=== PATIENT | female | born 1990 | race Caucasian/White ===

== ENCOUNTER 2017-10-09 06:13 | Emergency (ER) | payer OTHER ==
[~2017-10-09] VITALS: Ht 175.3 cm; Wt 133.8 kg
[~2017-10-09 06:13] MED LIST: ALLE4TAB10 PO; AMOX500C PO; NORE-44 PO; SERT-129 PO; VENTAER INH
[2017-10-09 06:18] VITALS: BP 153/81; PULSE 82; RESP 20; TEMP 97.4; O2SAT 97
[2017-10-09] MEDS ORDERED: ALLE60TA PO (06:35)
[2017-10-09] MEDS ORDERED: FLUT1AER6 INH (06:35)
[2017-10-09] MEDS ORDERED: CLON0.5T PO (06:36)
[2017-10-09] MEDS ORDERED: BENZ1CAP51 PO (06:36)
[2017-10-09] MEDS ORDERED: ALBUAER3 INH (06:36)
[2017-10-09] MEDS ORDERED: PRED20 PO (06:36)
[2017-10-09] MEDS ORDERED: SODIUM CHLOR 0.9% 1000 ML INJ 1,000 ML IV SCH (06:37)
[2017-10-09] MEDS ORDERED: ONDANSETRON HCL 4 MG/2 ML VIAL IVP ONE (06:45)
[2017-10-09] MEDS ORDERED: SODIUM CHLORIDE 0.9% FLUSH 10 ML FLUSH IV FLUSH PRN (06:45)
--- NOTE | 2017-10-09 06:48 | PD ---
HPI Chief Complaint: GI Complaint Time Seen by Provider: 06:34 Travel History International Travel<30 days: No Contact w/Intl Traveler<30days: No Traveled to known affect area: No History of Present Illness HPI The patient is a 26-year-old female that complains of nausea and vomiting without any diarrhea for 3 hours. She denies any blood in the vomitus or stool. She denies any fever. She has minimal abdominal pain and states it is only from the vomiting in the midline epigastrium region. She states there is no possibility of . She does take control pills correctly. PFSH Past Medical History Asthma: Yes Anxiety: Yes Depression: Yes Tetanus Vaccination: < 5 Years Influenza Vaccination: Yes ?: Not LMP: does not have Past Surgical History Surgical History: No Previous Surgery Social History Alcohol Use: No Tobacco Use: No Substance Use: No Allergies-Medications (Allergen,Severity, Reaction): Coded Allergies: cinnamon (Verified Allergy, Unknown, 10/09/17) tongue swells Reported Meds & Prescriptions Reported Meds & Active Scripts Active Reported Prednisone 20 Mg Tab 20 Mg PO DIRECTED 40 MG twice a day x 3 days, then 20 MG daily x 3 days, then 10 MG daily x 3 days Proair Hfa 8.5 GM Inh (Albuterol Sulfate) 90 Mcg/Act Aer 2 Puff INH Q4-6H PRN 108 mcg/actuation Clonazepam 0.5 Mg Tab 0.5 Mg PO DAILY Benzonatate 200 Mg Cap 200 Mg PO TID PRN Sarika Allergy (Fexofenadine HCl) 60 Mg Tab 60 Mg PO BID Airduo Respiclick Inh (Fluticasone-Salmeterol Inh) 55-14 Mcg Inh 1 Puff INH BID Sertraline (Sertraline HCl) 100 Mg Tab 150 Mg PO DAILY Review of Systems Except as stated in HPI: all other systems reviewed are Neg Physical Exam Narrative GENERAL: The patient is obese, alert, oriented 3 in moderate apparent distress other nausea. Her vital signs show blood pressure 153/81 but are otherwise normal. The patient appears mildly dehydrated. SKIN: Focused skin assessment warm/dry. HEAD: Atraumatic. Normocephalic. EYES: Pupils equal and round. No scleral icterus. No injection or drainage. ENT: No nasal bleeding or discharge. Mucous membranes pink and moist. NECK: Trachea midline. No JVD. CARDIOVASCULAR: Regular rate and rhythm. No murmur appreciated. RESPIRATORY: No accessory muscle use. Clear to auscultation. Breath sounds equal bilaterally. GASTROINTESTINAL: Abdomen soft, non-tender except for some minimal discomfort in the midline epigastrium, nondistended. Hepatic and splenic margins not palpable. No guarding or rebound is present. MUSCULOSKELETAL: No obvious deformities. No clubbing. No cyanosis. No edema. NEUROLOGICAL: Awake and alert. No obvious cranial nerve deficits. Motor grossly within normal limits. Normal speech. PSYCHIATRIC: Appropriate mood and affect; insight and judgment normal. Data Data Last Documented VS Vital Signs Date Time Temp Pulse Resp B/P (MAP) Pulse Ox O2 Delivery O2 Flow Rate FiO2 10/09/17 06:18 97.4 82 20 153/81 (105) 97 Orders Orders Complete Blood Count With Diff (10/09/17 06:37) Comprehensive Metabolic Panel (10/09/17 06:37) Lipase (10/09/17 06:37) Urinalysis - C+S If Indicated (10/09/17 06:37) Iv Access Insert/Monitor (10/09/17 06:37) Ecg Monitoring (10/09/17 06:37) Oximetry (10/09/17 06:37) Ondansetron Inj (Zofran Inj) (10/09/17 06:45) Sodium Chlor 0.9% 1000 Ml Inj (Ns 1000 M (10/09/17 06:37) Sodium Chloride 0.9% Flush (Ns Flush) (10/09/17 06:45) Ed Urine Pregnancytest Poc (10/09/17 06:37) [facility] Medical Decision Making Medical Screen Exam Complete: Yes Emergency Medical Condition: Yes Medical Record Reviewed: Yes Differential Diagnosis Gastritis, gastroenteritis, pancreatitis, ulcer pain, colitis, dehydration, electrolyte disorder Narrative Course It is now 0647 and the patient is transferred to Dr. Donovan. Veto Burrows MD Oct 09, 2017 06:48
[2017-10-09 07:06] VITALS: BP 127/73; PULSE 81; RESP 16; O2SAT 99
[2017-10-09 07:19] LABS: AUTOMATED NEUTROPHIL # 14.7 TH/MM3 (1.8-7.7); BASOPHIL # 0.2 TH/MM3 (0-0.2); EOSINOPHIL % 0.1 % (0.0-4.0); HEMATOCRIT 44.7 % (35.0-46.0); HEMOGLOBIN 15.5 GM/DL (11.6-15.3); LYMPH % 20.9 % (9.0-44.0); LYMPHOCYTE # 4.2 TH/MM3 (1.0-4.8); MEAN CELL VOLUME 87.7 FL (80.0-100.0); MEAN CORPUSCULAR HEMOGLOBIN 30.5 PG (27.0-34.0); MEAN CORPUSCULAR HGB CONC 34.7 % (32.0-36.0); MEAN PLATELET VOLUME 7.6 FL (7.0-11.0); MONO % 5.2 % (0.0-8.0); NEUT % 72.8 % (16.0-70.0); PLATELET COUNT 451 TH/MM3 (150-450); RED CELL DISTRIBUTION WIDTH 11.8 % (11.6-17.2); WHITE BLOOD COUNT 20.1 TH/MM3 (4.0-11.0)
[2017-10-09 07:24] LABS: CHLORIDE 103 MEQ/L (98-107); SODIUM (NA) 139 MEQ/L (136-145)
[2017-10-09 07:27] LABS: ALBUMIN 3.8 GM/DL (3.4-5.0); BICARBONATE 26.4 MEQ/L (21.0-32.0); CALCIUM 9.4 MG/DL (8.5-10.1)
[2017-10-09 07:28] LABS: BLOOD UREA NITROGEN 14 MG/DL (7-18); GLUCOSE,RANDOM 143 MG/DL (74-106)
[2017-10-09 07:30] LABS: ALT (GPT) 45 U/L (10-53); AST (GOT) 19 U/L (15-37)
[2017-10-09 07:31] LABS: GLOMERULAR FILTRATION RATE 87 ML/MIN (>89)
[2017-10-09 07:32] LABS: TOTAL BILIRUBIN ADULT 0.2 MG/DL (0.2-1.0); TOTAL PROTEIN 8.1 GM/DL (6.4-8.2)
[2017-10-09 07:33] LABS: ALKALINE PHOSPHATASE 80 U/L (45-117)
[2017-10-09 08:43] LABS: BILIRUBIN, URINE NEG (NEG); BLOOD, URINE NEG (NEG); GLUCOSE,URINE NEG (NEG); KETONE, URINE NEG (NEG); NITRITE,URINE NEG (NEG); PH, URINE 5.5 (5.0-8.5); URINE COLOR YELLOW (YELLW/STRAW); URINE LEUKOCYTE ESTERASE NEG (NEG)
[2017-10-09 08:45] VITALS: BP 143/74; PULSE 80; RESP 16; O2SAT 100
[2017-10-09] MEDS ORDERED: SODIUM CHLOR 0.9% 1000 ML INJ 1,000 ML IV ONE (08:45)
[2017-10-09 08:48] LABS: AMORPHOUS SEDIMENT, URINE FEW; BACTERIA, URINE MOD /hpf; SQUAMOUS EPITHELIAL CELL URINE 0-5 /hpf (0-5); WBC, URINE 0-2 /hpf (0-5)
[2017-10-09] MEDS ORDERED: ZOFR4TAB3 SL (09:07)
--- NOTE | 2017-10-09 09:11 | PD ---
Physical Exam Date Seen by Provider: Oct 09, 2017 Time Seen by Provider: 09:09 Narrative This 26-year-old female presents with complaint of vomiting. She was seen initially by Dr. Burrows. She has a history of asthma and has been having an exacerbation has been on multiple medications recently. Her asthma is improving she started vomiting around 4 this morning and was unable to stop. He received IV fluids and is feeling better. She does have some elevation of her white count may well be from her steroids that she is on for her asthma. On reexamination at 9:00 she better. She'll be released with prescription for Zofran Data Data Last Documented VS Vital Signs Date Time Temp Pulse Resp B/P (MAP) Pulse Ox O2 Delivery O2 Flow Rate FiO2 10/09/17 08:45 80 16 143/74 (97) 100 10/09/17 06:18 97.4 Orders Orders Complete Blood Count With Diff (10/09/17 06:37) Comprehensive Metabolic Panel (10/09/17 06:37) Lipase (10/09/17 06:37) Urinalysis - C+S If Indicated (10/09/17 06:37) Iv Access Insert/Monitor (10/09/17 06:37) Ecg Monitoring (10/09/17 06:37) Oximetry (10/09/17 06:37) Ondansetron Inj (Zofran Inj) (10/09/17 06:45) Sodium Chlor 0.9% 1000 Ml Inj (Ns 1000 M (10/09/17 06:37) Sodium Chloride 0.9% Flush (Ns Flush) (10/09/17 06:45) Ed Urine Pregnancytest Poc (10/09/17 06:37) Sodium Chlor 0.9% 1000 Ml Inj (Ns 1000 M (10/09/17 08:45) Urine Culture (10/09/17 08:15) Labs Laboratory Tests Test 10/09/17 07:00 10/09/17 08:15 White Blood Count 20.1 TH/MM3 Red Blood Count 5.10 MIL/MM3 Hemoglobin 15.5 GM/DL Hematocrit 44.7 % Mean Corpuscular Volume 87.7 FL Mean Corpuscular Hemoglobin 30.5 PG Mean Corpuscular Hemoglobin Concent 34.7 % Red Cell Distribution Width 11.8 % Platelet Count 451 TH/MM3 Mean Platelet Volume 7.6 FL Neutrophils (%) (Auto) 72.8 % Lymphocytes (%) (Auto) 20.9 % Monocytes (%) (Auto) 5.2 % Eosinophils (%) (Auto) 0.1 % Basophils (%) (Auto) 1.0 % Neutrophils # (Auto) 14.7 TH/MM3 Lymphocytes # (Auto) 4.2 TH/MM3 Monocytes # (Auto) 1.0 TH/MM3 Eosinophils # (Auto) 0.0 TH/MM3 Basophils # (Auto) 0.2 TH/MM3 CBC Comment DIFF FINAL Differential Comment Blood Urea Nitrogen 14 MG/DL Creatinine 0.80 MG/DL Random Glucose 143 MG/DL Total Protein 8.1 GM/DL Albumin 3.8 GM/DL Calcium Level 9.4 MG/DL Alkaline Phosphatase 80 U/L Aspartate Amino Transf (AST/SGOT) 19 U/L Alanine Aminotransferase (ALT/SGPT) 45 U/L Total Bilirubin 0.2 MG/DL Sodium Level 139 MEQ/L Potassium Level 3.8 MEQ/L Chloride Level 103 MEQ/L Carbon Dioxide Level 26.4 MEQ/L Anion Gap 10 MEQ/L Estimat Glomerular Filtration Rate 87 ML/MIN Lipase 79 U/L Urine Collection Type CLEAN CATCH Urine Color YELLOW Urine Turbidity CLEAR Urine pH 5.5 Urine Specific [place] GREATER/EQUAL 1.030 Urine Protein TRACE mg/dL Urine Glucose (UA) NEG mg/dL Urine Ketones NEG mg/dL Urine Occult Blood NEG Urine Nitrite NEG Urine Bilirubin NEG Urine Urobilinogen 0.2 MG/DL Urine Leukocyte Esterase NEG Urine WBC 0-2 /hpf Urine Squamous Epithelial Cells 0-5 /hpf Urine Amorphous Sediment FEW Urine Bacteria MOD /hpf Microscopic Urinalysis Comment CULTURE INDICATED Urine Collection Time 0815 MDM Medical Record Reviewed: Yes Supervised Visit with JUAN RAMON: Yes Differential Diagnosis Differential includes adverse medication reaction, acute gastritis Narrative Course She does respond well to IV fluids and Zofran. She'll be released with prescription for Zofran Diagnosis Primary Impression: Acute gastritis Scripts Ondansetron Odt (Zofran Odt) 4 Mg Tab 4 MG SL Q8HR Y for Nausea/Vomiting, #10 TAB 0 Refills Prov: Casey Soto MD 10/09/17 Disposition: 01 DISCHARGE HOME Condition: Stable Casey Soto MD Oct 09, 2017 09:11
== END 2017-10-09 09:28 | disposition home or self-care (01) ==
LOC: PHED 06:13
DX: K29.00 Acute gastritis without bleeding (principal); J45.909 Unspecified asthma, uncomplicated; F41.9 Anxiety disorder, unspecified; F32.9 Major depressive disorder, single episode, unspecified; Z79.899 Other long term (current) drug therapy
CPT/HCPCS: 80053; 81001; 83690; 84703; 85025; 87086; 96361; 96374; 99284; J2405; J7030